=== PATIENT | female | born 1975 | race Two or more races ===

== ENCOUNTER → 2017-06-10 | Outpatient (CLI) | payer BC | LOC: CIMAGING 16:35 | PROVIDERS: ATTEND Obstetrics & Gynecology | DX: N92.0 Excessive and frequent menstruation with regular cycle (principal) | CPT/HCPCS: 76856-PO ==

== ENCOUNTER 2017-09-11 09:09 | Emergency (ER) | payer BC ==
[2017-09-11 09:21] VITALS: TEMP 97.3
[2017-09-11] MEDS ORDERED: ASPIRIN 81 MG CHEWABLE TAB PO ONE (09:31)
[2017-09-11] MEDS ORDERED: ACETAMINOPHEN 500 MG TAB PO ONE (09:32)
--- NOTE | 2017-09-11 09:39 | CPEKG ---
Heart Rate: 59 RR Interval: 1017 P-R Interval: 160 QRSD Interval: 82 QT Interval: 396 QTC Interval: 393 P Jet: 51 QRS Jet: 75 T Wave Jet: 50 EKG Severity - NORMAL ECG - EKG Impression: SINUS RHYTHM Electronically Signed By: Chintan Torres 11-Sep-2017 10:37:36
[2017-09-11 09:50] LABS: % IMMATURE GRANULYOCYTES 0.2 % (0.0-1.1); ABSOLUTE IMMATURE GRANULOCYTES 0.01 10^3/uL (0.00-0.10); ADD DIFF? NO; ADD MORPH? NO; ADD SCAN? NO; ATYPICAL LYMPHOCYTE FLAG 0 (0-99); FRAGMENT RBC FLAG 0 (0-99); HEMATOCRIT 40.2 % (38.0-47.0); HEMOGLOBIN 13.5 g/dL (12.6-16.3); LEFT SHIFT FLG 0 (0-99); LIPEMIA HEMOLYSIS FLAG 80 (0-99); MEAN CELL HEMOGLOBIN CONCENTR. 33.6 g/dL (32.4-36.7); MEAN CELL VOLUME 74.4 fL (81.5-99.8); MEAN PLATELET VOLUME 10.7 fL (8.7-11.7); PLATELET CLUMPS FLAG 10 (0-99); PLATELET COUNT 253 10^3/uL (150-400); RED CELL DISTRIBUTION WIDTH 15.6 % (11.5-15.2)
[2017-09-11 10:06] LABS: ALANINE AMINOTRANSFERASE 27 IU/L (9-52); ALBUMIN 4.3 g/dL (3.5-5.0); ALKALINE PHOSPHATASE 49 IU/L (38-126); ANION GAP 15 mEq/L (8-16); ASPARTATE AMINOTRANSFERASE 13 IU/L (14-46); BILIRUBIN,TOTAL 0.2 mg/dL (0.1-1.4); CALCIUM 9.6 mg/dL (8.5-10.4); CARBON DIOXIDE 23 mEq/l (22-31); CHLORIDE 105 mEq/L (97-110); CREATININE 0.7 mg/dL (0.6-1.0); GLOMERULAR FILTRATION RATE > 60; GLUCOSE 92 mg/dL (70-100); POTASSIUM 4.3 mEq/L (3.5-5.2); SODIUM 143 mEq/L (134-144); TOTAL PROTEIN 7.5 g/dL (6.3-8.2)
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
[2017-09-11 10:37] LABS: TROPONIN I < 0.012 ng/mL (0.000-0.034)
[2017-09-11] MEDS ORDERED: MAG HYDROX/AL HYDROX/SIMETH 30 ML UDCUP ONE (10:55)
[2017-09-11] MEDS ORDERED: METOCLOPRAMIDE 10 MG/2 ML VIAL ONE (10:55)
[2017-09-11] MEDS ORDERED: KETOROLAC 30 MG/1 ML SDV ONE (10:55)
[2017-09-11] MEDS ORDERED: KETOROLAC 30 MG/1 ML SDV IVP ONE (11:01)
[2017-09-11] MEDS ORDERED: METOCLOPRAMIDE 10 MG/2 ML VIAL IVP ONE (11:01)
[2017-09-11] MEDS ORDERED: MAG HYDROX/AL HYDROX/SIMETH 30 ML UDCUP PO ONE (11:02)
[2017-09-11] MEDS ORDERED: NS 1,000 ML IV ONE (11:03)
[2017-09-11 11:52] LABS: COLOR YELLOW; LEUKOCYTE ESTERASE,URINE NEGATIVE (NEGATIVE); NITRITE,URINE NEGATIVE (NEGATIVE); PH,URINE 6.5 (5.0-7.5)
[2017-09-11 12:02] LABS: BACTERIA TRACE /hpf (NONE SEEN); WBC,URINE 0-1 /hpf (0-3)
[2017-09-11 12:31] VITALS: BP 110/66; PULSE 68; RESP 16; O2SAT 97
== END 2017-09-11 12:20 | disposition home or self-care (01) ==
LOC: CED 09:09
DX: G43.809 Other migraine, not intractable, without status migrainosus (principal); K21.9 Gastro-esophageal reflux disease without esophagitis
CPT/HCPCS: 70450-PO; 71020-PO; 80053-PO; 81003-PO; 81015-PO; 84443-PO; 84484-PO; 84703-PO; 85025-PO; 85378-PO; 96374; J1200; J1885; J2765